=== PATIENT | female | born 1955 | race Caucasian/White ===

== ENCOUNTER → 2018-03-24 | Outpatient (CLI) | payer BC ==
[~2018-03-24] MED LIST: ADULT LOW DOSE81 MG PO; BACTROBAN15 GM TP; FENOFIBRATE134 MG; GLUCOSAMINE &1 EACH PO; HYDROCHLOROTH12.5 MG; KEFLEX500 MG PO; MACROBID 100 M100 M1 PO; NORFLEX100 MG PO; OMEGA-31000 MG PO; PERCOCET 5-3251 EACH PO; PREVACID 30MG C30 M1 PO; PRINZIDE 10-121 EACH; PRINZIDE 20-121 EACH PO; PYRIDIUM200 M1 PO; SIMVASTATIN80 MG PO; WELLBUTRIN SR150 MG PO; ZANAFLEX4 M1 PO
== END ==
LOC: M.LAB 01:32
DX: Z01.812 Encounter for preprocedural laboratory examination (principal); Z79.899 Other long term (current) drug therapy

== ENCOUNTER → 2018-07-29 | Outpatient (CLI) | payer BC | LOC: M.LAB 03:47 | DX: Z01.812 Encounter for preprocedural laboratory examination (principal) ==